=== PATIENT | female | born 1980 | race Two or more races ===

== ENCOUNTER 2019-03-10 22:45 | Emergency (ER) | payer MEDICAID ==
[~2019-03-10] VITALS: Ht 165.1 cm; Wt 127.0 kg
[2019-03-11] MEDS ORDERED: HYDROcodone-ACET 5/325MG TAB PO ONE (04:30)
[2019-03-11 04:42] LABS: Urine Bacteria FEW /hpf (None Seen); Urine Blood Negative /uL (Negative); Urine Mucus FEW (None Seen); Urine Specific Gravity 1.025 (1.001-1.035); Urine WBC 6 /hpf (0 - 5)
[2019-03-11 04:55] LABS: Alcohol, Urine < 3.0 mg/dL (0-5); Amphetamine Screen, Urine NEGATIVE (NEGATIVE); Barbiturate Scree,Urine NEGATIVE (NEGATIVE); Benzodiazephine Screen, Urine NEGATIVE (NEGATIVE); Cannabinoid Screen, Urine NEGATIVE (NEGATIVE); Cocaine Screen, Urine NEGATIVE (NEGATIVE); Opiate Scree,Urine NEGATIVE (NEGATIVE); Phencyclidine Screen, Urine NEGATIVE (NEGATIVE)
[2019-03-11] MEDS ORDERED: IODIXANOL 320MG/ML 100ML BTL IV ONE (05:14)
[2019-03-11 06:13] LABS: Eosinophils # (auto) 0.1 uL; Neutrophils # (auto) 5.5 uL
[2019-03-11 06:14] LABS: Basophils # (auto) 0.1 uL; Basophils % (auto) 0.7 % (0.0-2.0); Eosinophils % (auto) 0.7 % (0.0-7.0); Hematocrit 39.4 % (36.0-46.0); Hemoglobin 12.9 g/dL (12.2-16.2); Lymphocytes % (auto) 24.3 % (10.0-50.0); Mean Corpuscular Hemoglobin 25.8 pg (28.0-32.0); Mean Corpuscular Hgb Conc. 32.7 g/dL (32.0-36.0); Mean Corpuscular Volume 78.9 fL (80.0-100.0); Monocytes # (auto) 0.6 uL; Monocytes % (auto) 7.7 % (0.0-12.0); Neutrophils % (auto) 66.6 % (37.0-80.0); Platelet Count (auto) 368 10^3/uL (140-450); Red Cell Distribution Width 16.5 % (11.8-14.3); White Blood Cell 8.2 10^3/uL (4.4-10.8)
[2019-03-11 06:22] LABS: Albumin 3.4 g/dL (3.4-5.0); Calcium 9.5 mg/dL (8.5-10.1); Potassium 3.9 mmol/L (3.5-5.1)
[2019-03-11 06:25] LABS: BUN/Creatinine Ratio 10.4; Bilirubin, Total 0.6 mg/dL (0.2-1.0); Total Protein 8.4 g/dL (6.4-8.2)
[2019-03-11 09:59] VITALS: BP 111/69
== END 2019-03-11 10:07 | disposition home or self-care (01) ==
LOC: ER 22:45
DX: N39.0 Urinary tract infection, site not specified (principal); J45.909 Unspecified asthma, uncomplicated; I10 Essential (primary) hypertension; Z90.49 Acquired absence of other specified parts of digestive tract; Z88.0 Allergy status to penicillin
CPT/HCPCS: 36415; 74177; 80053; 80307; 80320; 81001; 81025; 85025; 99284; Q9967

== ENCOUNTER → 2019-10-21 | Emergency (ER) | payer MEDICAID ==
[~2019-10-21] VITALS: Ht 165.1 cm; Wt 122.5 kg
[~2019-10-21] MED LIST: ACETAMINOPHEN/CODEINE#3 (300/30mg) TAB PO ONE; cloNIDine HCL 0.1 MG TAB PO ONE
[2019-10-21 19:18] VITALS: BP 199/111
== END | disposition home or self-care (01) ==
LOC: ER 18:57
DX: M23.91 Unspecified internal derangement of right knee (principal); M17.11 Unilateral primary osteoarthritis, right knee; J45.909 Unspecified asthma, uncomplicated; I10 Essential (primary) hypertension
CPT/HCPCS: 73562

== ENCOUNTER 2020-06-22 18:06 | Emergency (ER) | payer MEDICAID ==
[~2020-06-22] VITALS: Ht 165.1 cm; Wt 100.2 kg
[2020-06-22 18:45] LABS: Basophils # (auto) 0 10 ^3/uL (0-0.2); Hemoglobin 11.8 g/dL (12.2-16.2); Monocytes # (auto) 0.6 10 ^3/uL (0-1.3); Monocytes % (auto) 6.9 % (0.0-12.0); Neutrophils # (auto) 5.9 10 ^3/uL (1.6-8.6); Nucleated Red Blood Cells % 0.1 %; White Blood Cell 8.2 10^3/uL (4.4-10.8)
[2020-06-22 18:47] LABS: Basophils % (auto) 0.4 % (0.0-2.0); Eosinophils # (auto) 0.2 10 ^3/uL (0-0.8); Eosinophils % (auto) 1.9 % (0.0-7.0); Hematocrit 36.3 % (36.0-46.0); Lymphocytes # (auto) 1.5 10 ^3/uL (0.4-5.4); Lymphocytes % (auto) 18.2 % (10.0-50.0); Mean Corpuscular Hemoglobin 24.6 pg (28.0-32.0); Mean Corpuscular Hgb Conc. 32.5 g/dL (32.0-36.0); Mean Corpuscular Volume 75.8 fL (80.0-100.0); Neutrophils % (auto) 72.6 % (37.0-80.0); Platelet Count (auto) 389 10^3/uL (140-450); Red Cell Distribution Width 15.3 % (11.8-14.3)
[2020-06-22 19:00] LABS: INR 0.97 (0.9-1.15); Partial Thromboplastin Time 28.8 sec (23.0-31.2)
[2020-06-22 19:07] LABS: Albumin 3.4 g/dL (3.4-5.0); Anion Gap 3 (5-15); Blood Urea Nitrogen 13 mg/dL (7-18); Calcium 8.7 mg/dL (8.5-10.1); Carbon Dioxide 30 mmol/L (21-32); Chloride 103 mmol/L (98-107); Glucose 90 mg/dL (74-106); Potassium 3.8 mmol/L (3.5-5.1); Sodium 136 mmol/L (136-145)
[2020-06-22 19:12] LABS: Alanine Aminotransferase 20 U/L (13-56); Alkaline Phosphatase 93 U/L (45-117); Aspartate Aminotransferase 19 U/L (15-37); Bilirubin, Total 0.3 mg/dL (0.2-1.0); GFR African American 66 mL/min; GFR Non-African American 54 mL/min
[2020-06-22] MEDS ORDERED: cefTRIAXone W LIDOCAINE 1 GM IM IM ONE (19:15)
[2020-06-22] MEDS ORDERED: cloNIDine HCL 0.1 MG TAB PO ONE (19:30)
[2020-06-22 19:57] LABS: Urine Bacteria FEW /hpf (None Seen); Urine Blood Negative /uL (Negative); Urine Specific Gravity 1.011 (1.001-1.035); Urine WBC 1 /hpf (0 - 5)
[2020-06-22 21:00] VITALS: BP 165/99
== END 2020-06-22 20:35 | disposition home or self-care (01) ==
LOC: ER 18:06
DX: I16.0 Hypertensive urgency (principal); I10 Essential (primary) hypertension; J40 Bronchitis, not specified as acute or chronic; Z90.49 Acquired absence of other specified parts of digestive tract
CPT/HCPCS: 36415; 71045; 80053; 81001; 83880; 84484; 84702; 85025; 85610; 85730; 93005; J0696